=== PATIENT | male | born 1980 | race Caucasian/White ===

== ENCOUNTER 2019-01-23 17:38 | Emergency (ER) | payer BC ==
[~2019-01-23] VITALS: Ht 180.3 cm; Wt 83.5 kg
[2019-01-23 18:23] VITALS: BP 129/91
--- NOTE | 2019-01-23 18:33 | NUR ---
ANSELMO [place] AT BEDSIDE FOR EVAL.
--- NOTE | 2019-01-23 18:46 | NUR ---
PIPE INSULATOR AT BEDSIDE FOR XRAY.
--- NOTE | 2019-01-23 19:20 | NUR ---
REPORT GIVEN TO XIN VELAZQUEZ FOR BRODY. AWAITING XRAY RESULTS.
== END 2019-01-23 19:41 | disposition home or self-care (01) ==
LOC: ER 17:43
DX: M25.531 Pain in right wrist (principal); M25.532 Pain in left wrist; W01.0XXA Fall on same level from slipping, tripping and stumbling without subsequent striking against object, initial encounter; Y93.89 Activity, other specified; Y92.89 Other specified places as the place of occurrence of the external cause; Y99.8 Other external cause status
CPT/HCPCS: 73110